=== PATIENT | male | born 1960 | race African-American/Black ===

== ENCOUNTER 2017-10-05 15:35 | Emergency (ER) | payer SELFPAY ==
[~2017-10-05] VITALS: Ht 172.7 cm; Wt 91.0 kg
[2017-10-05] MEDS ORDERED: IBUPROFEN 400MG TABLET PO ONE (17:45)
[2017-10-05 20:21] VITALS: BP 122/69
== END 2017-10-05 20:22 | disposition home or self-care (01) ==
LOC: ER 15:35
DX: M10.9 Gout, unspecified (principal); M25.562 Pain in left knee; M25.561 Pain in right knee; F17.200 Nicotine dependence, unspecified, uncomplicated; Z76.0 Encounter for issue of repeat prescription
CPT/HCPCS: 93970; 99284